=== PATIENT | female | born 1965 | race African-American/Black ===

== ENCOUNTER 2019-04-02 18:07 | Emergency (ER) | payer SELFPAY | END 2019-04-02 19:28 | disposition home or self-care (01) | LOC: MADERS 18:07 | DX: I10 Essential (primary) hypertension (principal); Z86.73 Personal history of transient ischemic attack (TIA), and cerebral infarction without residual deficits; Z79.891 Long term (current) use of opiate analgesic; Z79.899 Other long term (current) drug therapy | CPT/HCPCS: 99283 ==